=== PATIENT | female | born 1995 | race American Indian/Alaskan Native ===

== ENCOUNTER 2017-03-06 15:55 | Emergency (ER) | payer SELFPAY ==
--- NOTE | 2017-03-06 17:48 | Emergency Department Report ---
HPI - General Chief Complaint: Sore Throat Time Seen by Provider: 03/06/17 17:48 - HPI HPI: Patient reports that she has sore throats and her tonsils are swollen times one week. She says she has no known fever but she has chills. She said her voice is muffled. Denies any drooling. Denies any difficulty swallowing she just said it's painful with swallowing pain is 3 out of 10 at present. She says she took some Tylenol prior to coming to the emergency room. She had previous history of jaw surgery otherwise no medical problems. Last menstrual period was 02/27/2017. She was also reported that she had some nausea when it first started a week ago but she hasn't had any since. Denies any urinary frequency urgency or burning. Denies any nasal congestion or runny nose. Denies any earache, headache or dizziness. She has some cough and but denies any chest pain or shortness of breath. Pain is worse with swallowing ED Past Medical Hx - Past Medical History Previous Medical History?: No - Surgical History Past Surgical History?: Yes Additional Surgical History: Jaw surgery - Family History Family history: no significant - Social History Smoking Status: Current Every Day Smoker Substance Use Type: None - Medications Home Medications: Home Medications Medication Instructions Recorded Confirmed Last Taken Type Amoxicillin/K Clav Tab [Augmentin 1 tab PO Q12HR #20 tab 03/06/17 Unknown Rx 875 mg] Cetirizine HCl [ZyrTEC] 10 mg PO QAM #14 capsule 03/06/17 Unknown Rx Fluticasone [Flonase] 1 spray NS QDAY #1 bottle 03/06/17 Unknown Rx Ibuprofen [Motrin] 600 mg PO Q8H PRN #15 tablet 03/06/17 Unknown Rx ED Review of Systems ROS: Stated complaint: SORE THROAT Other details as noted in HPI Comment: All other systems reviewed and negative Constitutional: chills. denies: fever Eyes: denies: eye pain, eye discharge, vision change ENT: throat pain, other (denies facial pain.). denies: ear pain, dental pain, hearing loss, congestion Respiratory: cough. denies: shortness of breath, SOB with exertion, SOB at rest , stridor, wheezing Cardiovascular: denies: chest pain, palpitations, dyspnea on exertion, orthopnea , edema, syncope Gastrointestinal: denies: abdominal pain, nausea, vomiting Musculoskeletal: denies: back pain, joint swelling, arthralgia, myalgia Skin: denies: rash Neurological: denies: headache, weakness, numbness, paresthesias, confusion, abnormal gait, vertigo Physical Exam - Physical Exam Vital Signs: Vital Signs 03/06/17 16:18 Temperature 97.7 F Pulse Rate 92 H Respiratory 16 Rate Blood Pressure 119/70 O2 Sat by Pulse 100 Oximetry General: This is a 21-year-old female well-nourished well-developed in no acute distress Physical Exam: Head: Normocephalic, atraumatic, no abrasion, no bruising and no contusion. Eyes: Biateral pupils equal and reactive to light, bilateral EOM intact.. Bilateral conjunctival and sclera without injection, normal accommodation. Ears: Bilateral EAC without any redness drainage or swelling, bilateral TM pearly mejia .bilateral tragus is normal and nontender. No auricular abnormality. No Mastoid bones tenderness. Nose: Moist, erythema and congested with clear drainage. No frontal or maxillary sinus tenderness Mouth: Positive tonsillar enlargement at 2+ with erythema and small amount of exudate. Uvula is midline and oral airways patent. Mouth moist and tongue is normal. No peritonsillar abscess noted. Neck: Supple, Positive Cervical adenopathy, full range of motion and no C-spine tenderness. No swelling or tracheal deviation Cardiovascular: S1, S2. Regular rate and rhythm. No murmur. Capillary refill is less then 3 seconds. Lungs: Clear to auscultate bilaterally. No rhonchi, wheezes or rales. No chest wall tenderness MSK: Strength 5/5 in all extremities. No joint deformity or crepitus. Normal inspection. Full range of motion to all extremities Extremities: No clubbing, cyanosis or edema. +2 pulses. No neurovascular compromise Skin: Clean, dry and intact. No rash or lesions. Psych: Normal mood and behavior. ED Course Vital Signs 03/06/17 16:18 Temperature 97.7 F Pulse Rate 92 H Respiratory 16 Rate Blood Pressure 119/70 O2 Sat by Pulse 100 Oximetry - Reevaluation(s) Reevaluation #1: 03/06/17 19:12 Patient stable throughout ED stay ED Medical Decision Making - Medical Decision Making Course: here reporting that she has enlarged tonsils with sore throat this had gone on for a week with chills and change in voice. Physical findings for tonsillitis with exudate. Oral airways patent. Patient also with upper respiratory tract infection. I discussed diagnosis and treatment plan with patient and she is in agreement. Patient referred to primary care physician for follow-up visit and if she does not have when she can follow-up at [facility]. Patient discharged home in stable condition with prescription for Zyrtec, Flonase, motr and Augmentin. Critical care attestation.: If time is entered above; I have spent that time in minutes in the direct care of this critically ill patient, excluding procedure time. ED Disposition Clinical Impression: Exudative tonsillitis, Upper respiratory infection, acute Acute pharyngitis Qualifiers: Pharyngitis/tonsillitis etiology: unspecified etiology Qualified Code(s): J02.9 - Acute pharyngitis, unspecified Disposition: - TO HOME OR SELFCARE Is pt being admited?: No Does the pt Need Aspirin: No Condition: Stable Instructions: Upper Respiratory Infection (ED), Tonsillitis (ED), Pharyngitis ( ED) Additional Instructions: Gargle with warm salt water Take motrin and prescribed for pain Zyrtec and flonase for congestion in ears and nose Follow up with PCP as instructed Take antibiotic as prescribe Prescriptions: Amoxicillin/K Clav Tab [Augmentin 875 mg] 1 tab PO Q12HR #20 tab Cetirizine HCl [ZyrTEC] 10 mg PO QAM #14 capsule Fluticasone [Flonase] 1 spray NS QDAY #1 bottle Ibuprofen [Motrin] 600 mg PO Q8H PRN #15 tablet PRN Reason: Pain Referrals: PRIMARY CARE, [Primary Care Provider] - 3-5 Days [facility] [place] [Outside] - 3-5 Days Forms: Work/School Release Form(ED)
[2017-03-06 19:57] VITALS: BP 125/71
== END 2017-03-06 19:45 | disposition home or self-care (01) ==
LOC: ED 15:55
DX: J03.90 Acute tonsillitis, unspecified (principal); J06.9 Acute upper respiratory infection, unspecified; F17.210 Nicotine dependence, cigarettes, uncomplicated
CPT/HCPCS: 99282

== ENCOUNTER 2017-06-21 14:34 | Emergency (ER) | payer SELFPAY ==
--- NOTE | 2017-06-21 17:56 | XRay Report ---
FINAL REPORT EXAM: XR CHEST ROUTINE 2V HISTORY: ccc TECHNIQUE: Two the chest Comparison: None FINDINGS: Normal heart size. Lungs are clear and well expanded without focal infiltrate or consolidation. There is no pleural effusion. There is no peribronchial thickening. There is mild scoliosis. IMPRESSION: No acute cardiopulmonary disease.
[2017-06-21] MEDS ORDERED: DECADRON IM ONE (18:15)
--- NOTE | 2017-06-21 18:15 | Emergency Department Report ---
Minor Respiratory - HPI Chief Complaint: Upper Respiratory Infection Stated Complaint: COUGH/ALFORD/BACK PAIN Time Seen by Provider: 06/21/17 18:02 Duration: 1 Day Pain Location: Other (cold like s/s and alford) Severity: mild Minor Respiratory: Yes Able to Tolerate Fluids, No Rhinorrhea, No Sore Throat, No Ear Pain, No Cough, No Sick Contacts, No Hemoptysis, No Chest Pain, No Shortness of Breath, No Fever ED Review of Systems ROS: Stated complaint: COUGH/ALFORD/BACK PAIN Other details as noted in HPI Comment: All other systems reviewed and negative Constitutional: no symptoms reported Eyes: as per HPI ENT: as per HPI Respiratory: no symptoms reported, cough Cardiovascular: as per HPI Neurological: headache ED Past Medical Hx - Past Medical History Previous Medical History?: No - Surgical History Past Surgical History?: Yes Additional Surgical History: Jaw surgery - Social History Smoking Status: Never Smoker Substance Use Type: None - Medications Home Medications: Home Medications Medication Instructions Recorded Confirmed Last Taken Type Benzonatate [Tessalon Perles] 100 mg PO Q8HR PRN #20 capsule 06/21/17 Unknown Rx Fluticasone [Flonase] 1 spray NS QDAY #1 bottle 06/21/17 Unknown Rx traMADol [Ultram] 50 mg PO Q6HR PRN #10 tablet 06/21/17 Unknown Rx Minor Respiratory Exam - Exam General: Vital signs noted. No distress. Alert and acting appropriately. HEENT: Yes Moist Mucous Membranes, No Pharyngeal Erythema, No Pharyngeal Exudates, No Rhinorrhea, No Conjuctival Injection, No Frontal Tenderness, No Maxillary Tenderness Ear: Neither TM Bulge, Neither TM Erythema, Neither EAC Pain, Neither EAC Discharge Neck: Yes Supple, No Adenopathy Lungs: Yes Good Air Exchange, Yes Cough, No Wheezes, No Ronchi, No Stridor, No Labored Respirations, No Retractions, No Use of Accessory Muscles, No Other Abnormal Lung Sounds Heart: Yes Regular, No Murmur Abdomen: Yes Normal Bowel Sounds, No Tenderness, No Peritoneal Signs Skin: No Rash, No Edema Neurologic: Alert and oriented, no deficits. Musculoskeletal: Unremarkable. ED Course Vital Signs 06/21/17 14:57 Temperature 98.6 F Pulse Rate 90 Respiratory 16 Rate Blood Pressure 101/52 O2 Sat by Pulse 100 Oximetry - Reevaluation(s) Reevaluation #1: 06/21/17 20:14 Patient presents to the ER today with vague symptoms of cold like symptoms. She also reports a headache. She is noted to have a cough. But her exam is otherwise unremarkable. Her flu swabs are negative. Chest x-ray shows no acute process. She is an otherwise healthy patient. No underlying lung disease. She is nontoxic non-ill appearing and afebrile. On admission she was given Decadron IM which she reported has made her headache go away. He has no meningeal signs there is no Kernig or Brudzinski. There is no fever. This patient is nontoxic in appearance Gas with patient our findings. We will treat the symptoms. Given that she is young and healthy she has been asked to follow up with her primary care physician within 48 hours so they can reassess her. She's been given signs and symptoms which should return her to the emergency room. On final disposition she was sitting tech sting on her cell phone texting. vss. no fever. non toxic. neuro intact ED Medical Decision Making - Radiology Data Radiology results: report reviewed, image reviewed - Medical Decision Making see note - Differential Diagnosis ro influenza Critical care attestation.: If time is entered above; I have spent that time in minutes in the direct care of this critically ill patient, excluding procedure time. ED Disposition Clinical Impression: Upper respiratory infection, Viral illness, Cough, Headache Disposition: - TO HOME OR SELFCARE Is pt being admited?: No Does the pt Need Aspirin: No Condition: Stable Instructions: Viral Syndrome (ED), Cold Symptoms (ED) Additional Instructions: Rest hydrate well with water Medications as ordered today follow up with primary care, see referral below, in 48 hours to make sure symptoms are improving return to emergency room if he develops a fever greater than 100.5 does not come down with Motrin or Tylenol Prescriptions: Benzonatate [Tessalon Perles] 100 mg PO Q8HR PRN #20 capsule PRN Reason: Cough Fluticasone [Flonase] 1 spray NS QDAY #1 bottle traMADol [Ultram] 50 mg PO Q6HR PRN #10 tablet PRN Reason: Pain Referrals: PRIMARY CARE, [Primary Care Provider] - 3-5 Days EVER JOYCE MD [Staff Physician] - 3-5 Days Time of Disposition: 18:54
[2017-06-21 18:43] LABS: Bacteria,Urine 1+ /HPF (Negative); Bilirubin,Urine NEG (Negative); Blood,Urine NEG (Negative); Color,Urine Yellow (Yellow); Hyaline Casts,Urine 1 /LPF; Mucus,Urine 3+ /HPF; Nitrite,Urine NEG (Negative)
[2017-06-21 18:49] LABS: HCG Qualitative,Urine Negative (Negative)
[2017-06-21 19:30] VITALS: BP 101/59
== END 2017-06-21 19:28 | disposition home or self-care (01) ==
LOC: ED 14:34
DX: J06.9 Acute upper respiratory infection, unspecified (principal); B34.9 Viral infection, unspecified
CPT/HCPCS: 71046; 81001; 81025; 87400; 96372; 99284; J1100

== ENCOUNTER 2017-11-27 15:58 | Emergency (ER) | payer SELFPAY ==
[2017-11-27 16:05] VITALS: BP 111/60
--- NOTE | 2017-11-27 18:05 | Emergency Department Report ---
ED Headache HPI - General Chief Complaint: Headache Stated Complaint: MIGRAINES 3 WEEKS Time Seen by Provider: 11/27/17 17:42 - History of Present Illness Initial Comments: Patient is a 21-year-old female who is presenting with a headache for the last several weeks. Patient states the last 3 weeks she's had some increase in headaches. Patient states they're intermittent. Patient says that usually left sided behind either radiate to the side of the head. This was some mild light sensitivity and nausea but no vomiting. Patient said his types of headaches for the last several years intermittently however she states she's never been seen by a neurologist. Allergies/Adverse Reactions: Allergies No Known Allergies Allergy (Verified 03/06/17 16:18) Home Medications: Ambulatory Orders Benzonatate [Tessalon Perles] 100 mg PO Q8HR PRN #20 capsule 06/21/17 Fluticasone [Flonase] 1 spray NS QDAY #1 bottle 06/21/17 traMADol [Ultram] 50 mg PO Q6HR PRN #10 tablet 06/21/17 Butalb/Acetamin/Caff 50-325-40 [Fioricet] 1 tab PO Q6HR PRN #12 tab 11/27/17 Ibuprofen [Motrin] 600 mg PO Q8H PRN #20 tablet 11/27/17 ED Review of Systems ROS: Stated complaint: MIGRAINES 3 WEEKS Other details as noted in HPI Comment: All other systems reviewed and negative ED Past Medical Hx - Past Medical History Previous Medical History?: Yes Additional medical history: Broken jaw - Surgical History Past Surgical History?: Yes Additional Surgical History: Jaw surgery - Social History Smoking Status: Current Some Day Smoker - Medications Home Medications: Home Medications Medication Instructions Recorded Confirmed Last Taken Type Benzonatate [Tessalon Perles] 100 mg PO Q8HR PRN #20 capsule 06/21/17 Unknown Rx Fluticasone [Flonase] 1 spray NS QDAY #1 bottle 06/21/17 Unknown Rx traMADol [Ultram] 50 mg PO Q6HR PRN #10 tablet 06/21/17 Unknown Rx Butalb/Acetamin/Caff 50-325-40 1 tab PO Q6HR PRN #12 tab 11/27/17 Unknown Rx [Fioricet] Ibuprofen [Motrin] 600 mg PO Q8H PRN #20 tablet 11/27/17 Unknown Rx ED Physical Exam - General Limitations: No Limitations General appearance: alert, in no apparent distress - Head Head exam: Present: atraumatic, normocephalic - Eye Eye exam: Present: normal appearance - ENT ENT exam: Present: mucous membranes moist - Neck Neck exam: Present: normal inspection - Respiratory Respiratory exam: Present: normal lung sounds bilaterally. Absent: respiratory distress, wheezes, rales - Cardiovascular Cardiovascular Exam: Present: regular rate, normal rhythm. Absent: systolic murmur, diastolic murmur, rubs, gallop - GI/Abdominal GI/Abdominal exam: Present: soft, normal bowel sounds. Absent: distended, tenderness, guarding - Extremities Exam Extremities exam: Present: normal inspection - Back Exam Back exam: Present: normal inspection - Neurological Exam Neurological exam: Present: alert, oriented X3 - Psychiatric Psychiatric exam: Present: normal affect, normal mood - Skin Skin exam: Present: warm, dry, intact, normal color. Absent: rash ED Course Vital Signs 11/27/17 16:02 Temperature 98.7 F Pulse Rate 85 Respiratory 20 Rate Blood Pressure 111/60 O2 Sat by Pulse 100 Oximetry ED Medical Decision Making - Medical Decision Making Patient be given meds for symptomatic relief will be discharged home with follow -up with neurology for formal diagnosis of migraines. Critical care attestation.: If time is entered above; I have spent that time in minutes in the direct care of this critically ill patient, excluding procedure time. ED Disposition Clinical Impression: Acute headache Qualifiers: Headache type: unspecified Intractability: not intractable Qualified Code(s): R51 - Headache Disposition: DC- TO HOME OR SELFCARE Is pt being admited?: No Does the pt Need Aspirin: No Condition: Stable Instructions: Migraine Headache (ED) Prescriptions: Butalb/Acetamin/Caff 50-325-40 [Fioricet] 1 tab PO Q6HR PRN #12 tab PRN Reason: Headache Ibuprofen [Motrin] 600 mg PO Q8H PRN #20 tablet PRN Reason: Pain Referrals: PRIMARY CARE, [Primary Care Provider] - 3-5 Days
== END 2017-11-27 18:20 | disposition home or self-care (01) ==
LOC: ED 15:58
DX: R51 Headache (principal); R11.0 Nausea; F17.200 Nicotine dependence, unspecified, uncomplicated
CPT/HCPCS: 99282

== ENCOUNTER 2020-12-18 13:31 | Emergency (ER) | payer SELFPAY ==
[2020-12-18 13:50] VITALS: BP 112/68
[2020-12-18] MEDS ORDERED: FAMOTIDINE 20 MG TAB PO ONE (15:18)
[2020-12-18] MEDS ORDERED: ONDANSETRON 4 MG ODT TAB PO ONE (15:18)
--- NOTE | 2020-12-18 15:18 | Emergency Department Report ---
<BRIDGETT SOLOMON - Last Filed: 12/18/20 21:09> ED Abdominal Pain HPI - General Chief Complaint: Abdominal Pain Stated Complaint: PAIN IN STOMACH BURNING SENSATION Time Seen by Provider: 12/18/20 14:45 - Related Data Previous Rx's Medication Instructions Recorded Last Taken Type Benzonatate [Tessalon Perles] 100 mg PO Q8HR PRN #20 capsule 06/21/17 Unknown Rx Fluticasone [Flonase] 1 spray NS QDAY #1 bottle 06/21/17 Unknown Rx traMADoL [Ultram] 50 mg PO Q6HR PRN #10 tablet 06/21/17 Unknown Rx Butalb/Acetamin/Caff 50-325-40 1 tab PO Q6HR PRN #12 tab 11/27/17 Unknown Rx [Fioricet] Ibuprofen [Motrin] 600 mg PO Q8H PRN #20 tablet 11/27/17 Unknown Rx Dicyclomine [Bentyl] 20 mg PO BID #30 tablet 12/18/20 Unknown Rx Famotidine [Pepcid] 10 mg PO BID #30 tablet 12/18/20 Unknown Rx Nitrofurantoin Esmeralda/M-Cryst 100 mg PO Q12HR #10 capsule 12/18/20 Unknown Rx [Macrobid CAP] Allergies Allergy/AdvReac Type Severity Reaction Status Date / Time No Known Allergies Allergy Verified 03/06/17 16:18 ED Past Medical Hx - Medications Home Medications: Home Medications Medication Instructions Recorded Confirmed Last Taken Type Benzonatate [Tessalon Perles] 100 mg PO Q8HR PRN #20 capsule 06/21/17 Unknown Rx Fluticasone [Flonase] 1 spray NS QDAY #1 bottle 06/21/17 Unknown Rx traMADoL [Ultram] 50 mg PO Q6HR PRN #10 tablet 06/21/17 Unknown Rx Butalb/Acetamin/Caff 50-325-40 1 tab PO Q6HR PRN #12 tab 11/27/17 Unknown Rx [Fioricet] Ibuprofen [Motrin] 600 mg PO Q8H PRN #20 tablet 11/27/17 Unknown Rx Dicyclomine [Bentyl] 20 mg PO BID #30 tablet 12/18/20 Unknown Rx Famotidine [Pepcid] 10 mg PO BID #30 tablet 12/18/20 Unknown Rx Nitrofurantoin Esmeralda/M-Cryst 100 mg PO Q12HR #10 capsule 12/18/20 Unknown Rx [Macrobid CAP] ED Medical Decision Making - Lab Data Result diagrams: 12/18/20 15:21 12/18/20 18:15 ED Disposition Clinical Impression: UTI (urinary tract infection), Gastritis Disposition: DC-01 TO HOME OR SELFCARE Is pt being admited?: No Does the pt Need Aspirin: No Condition: Stable Instructions: Gastritis, Adult, [id number], Urinary Tract Infection, Adult, Abdominal Pain (ED) Additional Instructions: Make sure to follow up with the primary care physician as discussed. Take all your medications as you've been prescribed. If you have any worsening symptoms or develop new symptoms please return to ED immediately. Prescriptions: Dicyclomine [Bentyl] 20 mg PO BID #30 tablet Nitrofurantoin Esmeralda/M-Cryst [Macrobid CAP] 100 mg PO Q12HR #10 capsule Famotidine [Pepcid] 10 mg PO BID #30 tablet Referrals: PRIMARY CARE, [Primary Care Provider] - 3-5 Days [facility] [Provider Group] - 3-5 Days [facility] [Outside] - 3-5 Days Forms: Work/School Release Form(ED) Time of Disposition: 21:16 <KAREN ALCOCER - Last Filed: 12/19/20 16:37> ED Abdominal Pain HPI - General Source: patient Mode of arrival: Ambulatory Limitations: No Limitations - History of Present Illness Initial Comments: 25-year-old female presents to the ER today with complaints of right upper quadrant/epigastric pain. She states that symptoms started a couple days ago. She described as a burning pain but also fullness in the abdomen. She states that has been constant waxing and waning. She is unable to describe any modifying factors. She reports nausea but no vomiting. She denies any bowel changes. She denies any fever or chills. She denies any associated chest pain or shortness of breath. She denies any past history of abdominal surgeries. Last menstrual cycle was November 27, 2020. She denies history of alcohol abuse and NSAID abuse. She denies known history of peptic ulcer disease/reflux or gastritis. MD Complaint: abdominal pain -: Gradual, days(s) (2-3) ED Review of Systems ROS: Stated complaint: PAIN IN STOMACH BURNING SENSATION Other details as noted in HPI Comment: All other systems reviewed and negative Constitutional: denies: chills, fever Eyes: denies: eye pain, eye discharge, vision change ENT: denies: ear pain, throat pain, dental pain, hearing loss, congestion Respiratory: denies: cough, shortness of breath, SOB with exertion, SOB at rest, wheezing Cardiovascular: denies: chest pain, palpitations, dyspnea on exertion, orthopnea, edema, syncope, paroxysmal nocturnal dyspnea Gastrointestinal: abdominal pain, nausea. denies: vomiting, diarrhea, con stipation, hematemesis, melena, hematochezia Genitourinary: denies: urgency, dysuria, frequency, hematuria, discharge, abnormal menses, dyspareunia Musculoskeletal: denies: back pain, joint swelling, arthralgia, myalgia Skin: denies: rash, lesions, change in color, change in hair/nails, pruritus Neurological: denies: headache, weakness, paresthesias Psychiatric: denies: anxiety, depression, auditory hallucinations, visual hallucinations, homicidal thoughts, suicidal thoughts Hematological/Lymphatic: denies: easy bleeding, easy bruising, swollen glands ED Past Medical Hx - Past Medical History Previous Medical History?: No Additional medical history: Broken jaw - Surgical History Past Surgical History?: Yes Additional Surgical History: Jaw surgery - Social History Smoking Status: Current Some Day Smoker ED Physical Exam - General Limitations: No Limitations General appearance: alert, in no apparent distress - Head Head exam: Present: atraumatic, normocephalic, normal inspection - Eye Eye exam: Present: normal appearance, PERRL, EOMI Pupils: Present: normal accommodation - ENT ENT exam: Present: normal exam, mucous membranes moist - Neck Neck exam: Present: normal inspection - Respiratory Respiratory exam: Present: normal lung sounds bilaterally. Absent: respiratory distress - Cardiovascular Cardiovascular Exam: Present: regular rate, normal rhythm, normal heart sounds - GI/Abdominal GI/Abdominal exam: Present: soft, tenderness (TTP epigastric area without guarding or rebound or rigidity or distension. ). Absent: distended - Neurological Exam Neurological exam: Present: alert, oriented X3, CN II-XII intact, normal gait - Psychiatric Psychiatric exam: Present: normal affect, normal mood - Skin Skin exam: Present: intact ED Course Vital Signs 12/18/20 13:49 Temperature 98.0 F Pulse Rate 83 Respiratory 18 Rate Blood Pressure 112/68 O2 Sat by Pulse 98 Oximetry ED Medical Decision Making - Lab Data Result diagrams: 12/18/20 15:21 12/18/20 18:15 - Medical Decision Making 1706: Reviewed labs -- CBC normal; LFTs are elevated, nl lipase, BMP pending, UA concerning for UTI and culture pending. Gallbladder US added given patient complaint of epigastric pain and elevated LFTs . Discussed lab results with patient. Discussed reason for doing ultrasound with patient. She is currently resting comfortably. She does not appear to be in any significant distress but she states that she still having some pain in the epigastric area despite the Pepcid. Saline lock ordered patient will be given an IV dose of morphine and Zofran as well as some fluids while awaiting ultrasound results. The patient's care has been transferred to and accepted by[MERON Cordero]. We discussed: The patient's chief complaints; labs and imaging that have been completed and those that are still pending; any treatment provided and the patient's response to treatment; any significant change in condition; the treatment plan prior to the transfer of care. The accepting provider will follow up on all pending labs and imaging and make any necessary changes to the current impression and/or treatment plan. The accepting physician/midlevel is now responsible for the patient's care and final disposition. Critical care attestation.: If time is entered above; I have spent that time in minutes in the direct care of this critically ill patient, excluding procedure time.
[2020-12-18 16:09] LABS: Bilirubin,Urine NEG (Negative); Blood,Urine NEG (Negative); Color,Urine Yellow (Yellow); Mucus,Urine 3+ /HPF; Urobilinogen,Urine < 2.0 mg/dL (<2.0)
[2020-12-18 16:16] LABS: Basophils % (Auto) 0.4 % (0.0-1.8); Eosinophils # (Auto) 0.1 K/mm3 (0.0-0.4); Eosinophils % (Auto) 0.8 % (0.0-4.3); Hematocrit 40.6 % (30.3-42.9); Hemoglobin 13.7 gm/dl (10.1-14.3); Lymphocytes # (Auto) 1.7 K/mm3 (1.2-5.4); Mean Corpuscular HGB Conc 34 % (30-34); Mean Corpuscular Volume 91 fl (79-97); Monocytes # (Auto) 0.5 K/mm3 (0.0-0.8); Monocytes % (Auto) 6.1 % (0.0-7.3); Platelet Count 185 K/mm3 (140-440); Red Blood Count 4.45 M/mm3 (3.65-5.03); Red Cell Distribution Width 13.8 % (13.2-15.2)
[2020-12-18 16:22] LABS: Alanine Aminotransferase 157 units/L (7-56); Albumin 4.4 g/dL (3.9-5)
[2020-12-18 16:23] LABS: Bilirubin,Direct < 0.2 mg/dL (0-0.2)
[2020-12-18] MEDS ORDERED: ONDANSETRON 4 MG/2 ML INJ IV ONE (17:08)
[2020-12-18] MEDS ORDERED: MORPHINE 2 MG/1 ML INJ IV ONE (17:08)
[2020-12-18] MEDS ORDERED: SODIUM CHLORIDE 0.9% 1000 ML 1,000 ML IV ONE (17:08)
--- NOTE | 2020-12-18 18:25 | Ultrasound Report ---
LIMITED RUQ ABDOMINAL ULTRASOUND INDICATION: Epigastric pain. COMPARISON: No relevant prior imaging study available. FINDINGS: Pancreas: Visualized portions show no significant abnormality. Abdominal Aorta: No significant abnormality. IVC: No significant abnormality. Liver: No significant abnormality. Normal hepatopedal blood flow in the main portal vein. Gallbladder: No significant abnormality. Bile ducts: No significant abnormality. Common bile duct measures 2 mm. Right kidney: No significant abnormality visualized.. Free fluid: None. Additional Findings: None. IMPRESSION: 1. Normal exam. Signer Name: Mart Collado MD Signed: 12/18/2020 6:21 PM Workstation Name: [email or web address]
[2020-12-18 18:47] LABS: Blood Urea Nitrogen 10 mg/dL (7-17); Calcium 9.6 mg/dL (8.4-10.2); Hemolysis Index 3
[2020-12-18 18:53] LABS: BUN/Creatinine Ratio 17
== END 2020-12-18 21:30 | disposition home or self-care (01) ==
LOC: ED 13:31
DX: K29.70 Gastritis, unspecified, without bleeding (principal); N39.0 Urinary tract infection, site not specified; F17.290 Nicotine dependence, other tobacco product, uncomplicated; Z98.890 Other specified postprocedural states
CPT/HCPCS: 36415; 76705; 80048; 80076; 81001; 83690; 84703; 85025; 87086; 96361; 96374; 96375; 99284; J2270; J2405; J7030; Q0162